=== PATIENT | male | born 1990 | race Caucasian/White ===

== ENCOUNTER → 2021-09-01 | Outpatient (CLI) | payer BC ==
--- NOTE | 2021-09-04 12:35 | REPVR ---
PROCEDURE INFORMATION: Exam: CT Maxillofacial Without Contrast, Sinus Exam date and time: 09/01/2021 10:59 AM Age: 31 years old Clinical indication: Other: Nasal poylp TECHNIQUE: Imaging protocol: CT Maxillofacial without contrast. Focus on the sinuses. Radiation optimization: All CT scans at this facility use at least one of these dose optimization techniques: automated exposure control; mA and/or kV adjustment per patient size (includes targeted exams where dose is matched to clinical indication); or iterative reconstruction. COMPARISON: No relevant prior studies available. FINDINGS: Frontal sinuses: There is focal mucosal thickening along the floor of the right frontal sinus. There is opacification of the left frontal sinus. The frontoethmoidal recesses are obscured by mucosal thickening. Ethmoid air cells: There are partial ethmoidectomy changes. There is diffuse opacification of ethmoid air cells. No air-fluid levels. Sphenoid sinuses: There is moderate ethmoid mucosal thickening. Maxillary sinuses: There are right turbinectomy changes. There is moderate right maxillary sinus mucosal thickening. There is near opacification of the left maxillary sinus. The left maxillary sinus infundibulum is obscured by mucosal thickening. Nasal cavity/Septum: There are turbinectomy changes. There is polypoid thickening within the left nasal cavity. Orbital cavity: Orbits are normal. Globes are unremarkable. Bones/joints: Unremarkable. Soft tissues: Unremarkable. 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 Postoperative changes. Electronically signed by: Angeli Sharif On 09/04/2021 12:34:29 PM
== END ==
LOC: M RAD 10:38
PROVIDERS: ATTEND Otolaryngology
DX: J32.9 Chronic sinusitis, unspecified (principal); J33.9 Nasal polyp, unspecified

== ENCOUNTER → 2021-10-15 | Outpatient (CLI) | payer BC ==
[~2021-10-15] MED LIST: ALBU8.5H PO; BUDE0.5S6; LORA-753 PO; SYMB16INH INH
== END ==
LOC: M LABSMTC 11:17
PROVIDERS: ATTEND Anesthesiology
DX: Z01.818 Encounter for other preprocedural examination (principal); Z11.52 Encounter for screening for COVID-19

== ENCOUNTER 2021-10-20 10:07 | Day surgery (SDC) | payer BC ==
[~2021-10-20] VITALS: Ht 188 cm; Wt 102.0 kg
[~2021-10-20 10:07] MED LIST changes: +LIDOCAINE 2% 100MG/5ML SDV (FOR ANES.) As Ordered ONE; +LR 1,000 ML IV ONE; +MIDAZOLAM INJ 2MG/2ML VIAL (J2250 PER 1MG) As Ordered ONE; +ROCURONIUM BROMIDE 50 MG/5 ML VIAL As Ordered ONE; +fentaNYL 250 MCG/5 ML INJECTION As Ordered ONE; +propofoL 200 MG/20 ML VIAL As Ordered ONE
[2021-10-20] MEDS ORDERED: COCAINE 4% 4ML NASAL SOLUTION BTL As Ordered ONE (10:55)
[2021-10-20] MEDS ORDERED: OXYMETAZOLINE 0.05% NASAL SPRAY (AFRIN) As Ordered ONE ×2 (10:55→13:31)
[2021-10-20] MEDS ORDERED: LIDOCAINE W/EPINEPHRINE 1% 20ML VIAL As Ordered ONE (10:56)
[2021-10-20] MEDS ORDERED: METHYLENE BLUE 0.5% (5MG/ML) 10 ML AMP (PROVAYBLUE) As Ordered ONE (12:30)
[2021-10-20] MEDS ORDERED: ESMOLOL INJ 100MG/10ML VIAL As Ordered ONE (12:31)
[2021-10-20] MEDS ORDERED: ONDANSETRON 4MG/2ML VIAL As Ordered ONE (12:33)
[2021-10-20] MEDS ORDERED: dexameTHASONE 4 MG/ML 1ML VIAL (J1100 PER 1MG) As Ordered ONE (12:33)
[2021-10-20] MEDS ORDERED: propofoL 200 MG/20 ML VIAL As Ordered ONE (12:49)
[2021-10-20] MEDS ORDERED: ACETAMINOPHEN 1000MG 100ML IV BTL (OFIRMEV) (J0131 PER 10MG) As Ordered ONE (12:51)
[2021-10-20] MEDS ORDERED: LABETALOL 100MG/20ML VIAL As Ordered ONE (12:57)
[2021-10-20] MEDS ORDERED: ROCURONIUM BROMIDE 50 MG/5 ML VIAL As Ordered ONE (13:07)
[2021-10-20] MEDS ORDERED: SUGAMMADEX SODIUM 500 MG/5 ML VIAL (BRIDION) As Ordered ONE (14:12)
[2021-10-20] MEDS ORDERED: LR 1,000 ML IV SCH ×2 (14:55→15:55)
[2021-10-20] MEDS ORDERED: HYDROMORPHONE HCL 0.5 MG/ 0.5 ML SYRINGE (J1170 PER 1) IV PRN (14:55)
[2021-10-20] MEDS ORDERED: ONDANSETRON 4MG/2ML VIAL IV PRN ×2 (14:55→16:00)
[2021-10-20] MEDS ORDERED: fentaNYL 100 MCG/2 ML INJECTION IV PRN (14:55)
[2021-10-20] MEDS ORDERED: oxyCODONE 5MG TAB PO PRN (14:55)
[2021-10-20] MEDS ORDERED: ALBUTEROL SULFATE 2.5 MG/0.5 ML INH NEB SOLN INH SCH (15:55)
[2021-10-20] MEDS ORDERED: HYDROcodone/APAP LIQUID 7.5-325MG 15ML UDC (LORTAB ELIXIR) PO PRN (16:00)
[2021-10-20] MEDS ORDERED: MORPHINE 10 MG/ML 1ML VIAL (J2270) IV PRN (16:00)
[2021-10-20 16:30] VITALS: BP 145/92
== END 2021-10-20 16:55 | disposition home or self-care (01) ==
LOC: M SDC 10:07
PROVIDERS: ATTEND Otolaryngology
DX: J32.9 Chronic sinusitis, unspecified (principal); J33.9 Nasal polyp, unspecified; Z88.8 Allergy status to other drugs, medicaments and biological substances; J45.909 Unspecified asthma, uncomplicated; G40.909 Epilepsy, unspecified, not intractable, without status epilepticus; Z79.899 Other long term (current) drug therapy
CPT/HCPCS: 31255; 31267; 88305; C9046; J0131; J1100; J2250; J2405; J3010; Q9968